=== PATIENT | female | born 2000 | race Caucasian/White ===

== ENCOUNTER → 2019-09-29 12:41 | Outpatient (CLI) | payer OTHER | END | disposition home or self-care (01) | LOC: D.LABREF 12:41 | PROVIDERS: ATTEND Internal Medicine Pulmonary Disease | DX: Z11.59 Encounter for screening for other viral diseases (principal) ==

== ENCOUNTER → 2019-10-01 14:03 | Outpatient (CLI) | payer OTHER | END | disposition home or self-care (01) | LOC: D.RT 14:03 | PROVIDERS: ATTEND Nurse Practitioner | DX: R06.02 Shortness of breath (principal); Z11.59 Encounter for screening for other viral diseases ==